=== PATIENT | female | born 1985 | race Caucasian/White ===

== ENCOUNTER 2022-05-16 14:16 | Inpatient (IN) | payer MEDICAID, SELFPAY ==
[2022-05-16 14:32] VITALS: BMI 19.5
[2022-05-16 14:35] VITALS: BP 130/84; PULSE 83; RESP 15; TEMP 36.6; O2SAT 97
[2022-05-16] MEDS: nicotine 2 mg Gum BUCCAL ×2 (15:29→23:55)
[2022-05-16] MEDS: acetaminophen 325 mg Tablet 650 MG PO (15:29)
[2022-05-16 20:52] VITALS: BP 100/65; PULSE 100; RESP 20; TEMP 37.1; O2SAT 98
[2022-05-16 20:58] VITALS: BP 100/65; PULSE 100; RESP 20; TEMP 37.1; O2SAT 98
[2022-05-17 01:41] LABS: Add Urine Culture? No; Bacteria Urine TRACE /hpf; Bilirubin Urine Neg (Negative); Blood Urine Neg (Negative); Glucose Urine UA Norm (Normal); Ketones Urine Negative (Negative); Leukocyte Esterase Urine Negative (Negative); Mucus Urine TRACE /hpf; Nitrate Urine Negative (Negative); Protein Urine Neg (Negative); RBC Urine 0-4 /hpf (0-2); Urine Appearance Clear (CLEAR); Urine Color Straw (Yellow); Urobilinogen Urine Norm (Negative); WBC Urine 0-4 /hpf (0-5); pH Urine 6 (5-7)
[2022-05-17] MEDS: hyDROXYzine 25 mg Capsule 50 MG PO (01:42)
[2022-05-17 06:00] VITALS: BP 124/76; PULSE 70; RESP 20; TEMP 36.7; O2SAT 99
[2022-05-17] MEDS: nicotine 2 mg Gum BUCCAL ×2 (06:12→09:32)
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
--- NOTE | 2022-05-17 07:48 | PC.NURSE ---
NEW ORDERS DR. ACUNA NOTIFIED THIS RN OF NEW ORDERS TO OBTAIN UA&CS, CBC AND BMP. ORDERS PLACED IN [facility]. PT EDUCATED ON NEW ORDERS PT VERBALIZES UNDERSTANDING.
--- NOTE | 2022-05-17 08:44 | PC.NURSE ---
UP IN DAY AREA STATES SHE DID NOT SLEEP WELL LAST NIGHT DUE TO TRAINING HERSELF TO WORK NIGHTS. 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 PT DOES REPORT GENERALIZED PAIN 3/10, MED NURSE TO ADMINISTER TYLENOL ORDERED. PT DENIES SI/HI AND AVH AT THIS TIME. SUPPORT WAS VOICED.
[2022-05-17] MEDS: acetaminophen 325 mg Tablet 650 MG PO ×2 (09:03→22:19)
[2022-05-17 09:20] LABS: Basophils # 0.1 10^3/uL (0.0-0.1); Basophils % 1.2 %; Eosinophils # 0.2 10^3/uL (0.0-0.8); Eosinophils % 2.6 %; Hematocrit 37.9 % (37.0-47.0); Hemoglobin 13.2 g/dL (11.5-15.3); Lymphocytes # 2.9 10^3/uL (0.8-4.8); Lymphocytes % 37.6 %; Mean Corpuscular HGB Conc 34.8 g/dL (30.0-36.0); Mean Platelet Volume 11.2 fL (7.4-10.4); Monocytes # 0.5 10^3/uL (0.2-0.9); Monocytes % 6.7 %; Neutrophils % 51.6 %; Nucleated Red Blood Cells % 0 %; Platelet Count 209 10^3/cmm (130-400); Red Blood Count 4.12 10^6/uL (4.1-5.3); Red Cell Distribution Width 12.4 % (12.1-15.1); White Blood Count 7.7 10^3/uL (4.0-10.0)
[2022-05-17 09:46] LABS: Blood Urea Nitrogen 23 mg/dL (6-20); Calcium 10.3 mg/dL (8.5-10.5); Carbon Dioxide 27 mmol/L (22-29); Chloride 100 mmol/L (98-107); Glomerular Filtration Rate 46.3 mL/min (90-130); Glucose 77 mg/dL (65-115); Osmolality Calculated 286 mOsm/kg (285-295); Sodium 137 mmol/L (136-145)
[2022-05-17] MEDS: nicotine 21 mg Patch 1 PATCH TRANSDERMA (13:09)
[2022-05-17 14:00] VITALS: BP 103/69; PULSE 82; RESP 16; TEMP 37.1; O2SAT 99
[2022-05-17] MEDS: OLANZapine 5 mg ODT PO (15:33)
[2022-05-17 19:48] VITALS: BP 111/60; PULSE 80; RESP 16; TEMP 36.9; O2SAT 98
[2022-05-17] MEDS: benzocaine 20% 7 gm 1 APPLIC MUCOUS MEM (22:19)
[2022-05-18] MEDS: hyDROXYzine 25 mg Capsule 50 MG PO (02:57)
--- NOTE | 2022-05-18 03:02 | PC.NURSE ---
AGITATION SOON AFTER SHIFT CHANGE PT CAME TO NURSES STATION REQUESTING TOWELS AND SHOWER SUPPLIES. PT WAS NOTIFIED THERE WAS NO TOWELS ON THE UNIT LEFT FROM DAY SHIFT AND STAFF WOULD ATTEMPT TO GET TOWELS SOON POSSIBLE, IT WAS JUST AFTER SHIFT CHANGE. PT REPEATEDLY CAME TO NURSES STATION REQUESTING TOWELS AND STAFF CONTINUED TO LET PT KNOW WE HAD NO TOWELS ON THE UNIT AND WOULD GET THEM SOON POSSIBLE. PT STATED SHE WAS GOING TO CALL HER WAREHOUSE PERSON AND SU THIS HOSPITAL BECAUSE STAFF WAS UNABLE TO GET HER TOWELS AT THAT TIME. DUE TO PT ACUITY TOWELS WERE NOT OBTAINED UNTIL 0000 AND TOWELS HAD TO BE BROUGHT TO THE UNIT BY FRUIT CULLER. PT WAS EXTREMELY AGITATED AND STAFF HAD TO EXPLAIN TO HER MULTIPLE TIMES WHY IT TOOK SO LONG TO GET TOWELS. AFTER PT SHOWERED PT TOLD ICE CREAM VENDOR THAT STAFF WAS LAZY AND DID NOT HELP HER. ONCE IT WAS EXPLAINED TO PT AGAIN SHE THEN APOLOGIZED. AT 0250 PT RETURNED TO NURSES STATION REQUESTING MEDICATION FOR ANXIETY AND THAT THE PROVIDER WAS GOING TO ORDER HER A NEW MEDICATION THAT STARTED WITH A P . ONCE THIS NURSE EXPLAINED TO THE PT THAT THE PROVIDER HAD NOT PLACED THAT ORDER AT THIS TIME SO SAID MEDICATION COULD NOT BE ADMINISTERED UNTIL STAFF SPEAKS WITH PROVIDER. PT BEGAN STATING SHE WAS GOING TO CALL HER WAREHOUSE PERSON IN THE MORNING AND SU THE HOSPITAL. ICE CREAM VENDOR GAVE VISTERIL 50MG (25MG CAPSULES) AND PT REFUSED ONE TABLET. PT THEN RETURNED TO HER ROOM.
[2022-05-18 06:00] VITALS: BP 106/70; PULSE 92; RESP 18; TEMP 36.9; O2SAT 97
[2022-05-18] MEDS: nicotine 21 mg Patch 1 PATCH TRANSDERMA (10:07)
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
[2022-05-18] MEDS: ARIPiprazole 10 mg Tablet 5 MG PO (13:58)
[2022-05-18 14:00] VITALS: BP 113/76; PULSE 84; RESP 16; TEMP 36.6; O2SAT 99
[2022-05-18 20:09] VITALS: BP 107/68; PULSE 86; RESP 18; O2SAT 98
[2022-05-18] MEDS: acetaminophen 325 mg Tablet 650 MG PO (20:46)
[2022-05-18] MEDS: mirtazapine 15 mg Tablet PO (21:06)
--- NOTE | 2022-05-18 21:06 | PC.NURSE ---
Pt at first refused her remeron 15mg this evening. Requested RN to call Dr to see if medication could be given in the morning due to her job being at night. Doctor notified and stated while pt is here, the said medication needs to be given at night so she can rest, and when she gets home she can adjust it to morning if she wants, but that she needs to take it at bedtime. pt agreed and voiced understanding and then agreed to take said medication tonight after all.
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
[2022-05-19 05:41] VITALS: BP 108/69; PULSE 89; RESP 17; TEMP 36.6; O2SAT 96
[2022-05-19] MEDS: ARIPiprazole 10 mg Tablet 5 MG PO (08:30)
[2022-05-19] MEDS: nicotine 21 mg Patch 1 PATCH TRANSDERMA (08:30)
[2022-05-19] MEDS: acetaminophen 325 mg Tablet 650 MG PO ×2 (09:04→20:32)
[2022-05-19 13:48] VITALS: BP 108/69; PULSE 89; RESP 17; TEMP 36.6; O2SAT 96
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
[2022-05-19] MEDS: mirtazapine 15 mg Tablet 30 MG PO (19:43)
[2022-05-19 19:50] VITALS: BP 101/67; PULSE 100; RESP 20; TEMP 36.8; O2SAT 97
[2022-05-20 06:00] VITALS: BP 101/67; PULSE 82; RESP 20; TEMP 36.7; O2SAT 97
[2022-05-20] MEDS: nicotine 21 mg Patch 1 PATCH TRANSDERMA (08:24)
[2022-05-20] MEDS: ARIPiprazole 10 mg Tablet 7.5 MG PO (08:24)
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
[2022-05-20 14:00] VITALS: BP 100/61; PULSE 82; RESP 17; TEMP 36.8; O2SAT 100
[2022-05-20] MEDS: acetaminophen 325 mg Tablet 650 MG PO (18:37)
[2022-05-20 19:55] VITALS: BP 111/71; PULSE 89; RESP 16; TEMP 36.6; O2SAT 97
[2022-05-20] MEDS: mirtazapine 15 mg Tablet 30 MG PO (20:35)
[2022-05-21 06:00] VITALS: BP 112/67; PULSE 86; RESP 18; TEMP 36.6; O2SAT 99
[2022-05-21] MEDS: multivitamin therapeutic Tablet 1 TAB PO (09:41)
[2022-05-21] MEDS: ARIPiprazole 10 mg Tablet 7.5 MG PO (09:41)
[2022-05-21] MEDS: nicotine 21 mg Patch 1 PATCH TRANSDERMA (09:41)
--- NOTE | 2022-05-21 10:01 | PC.NURSE ---
PT IN DAY AREA CALM AND COOPERATIVE. DENIES PAIN DENIES SI/HI AND AVH AT THIS TIME. PT CONTINUES TO FOCUS ON RELIGOUS IDEATIONS BELIEVEING SHE IS THE SECOND COMING OF DEV. PT ALSO STATES SHE IS FOCUSING ON BREAKING GENERATIONAL CURSES AND GENERATIONAL TRAUMAS. ALL QUESTIOS ANSWERED AND SUPPORT VOICED.
[2022-05-21 14:00] VITALS: BP 112/77; PULSE 84; RESP 16; TEMP 36.9; O2SAT 99
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
[2022-05-21 15:30] VITALS: BP 112/67; PULSE 86; RESP 18; TEMP 36.6; O2SAT 99
== END 2022-05-21 16:30 | disposition home or self-care (01) | DRG 885 ==
PROVIDERS: Admitting Provider Psychiatry & Neurology Psychiatry; Visit Provider Psychiatry & Neurology Psychiatry
DX: F29 Unspecified psychosis not due to a substance or known physiological condition (principal); F43.10 Post-traumatic stress disorder, unspecified; F41.9 Anxiety disorder, unspecified; F17.210 Nicotine dependence, cigarettes, uncomplicated; Z81.8 Family history of other mental and behavioral disorders; Z62.810 Personal history of physical and sexual abuse in childhood
CPT/HCPCS: 36415; 80048; 81001; 85025; 97150; 97165

== ENCOUNTER 2022-05-22 04:30 | Emergency (ER) | payer MEDICAID, SELFPAY ==
--- NOTE | 2022-05-22 04:37 | W.ED.GENADLT ---
HPI - General Adult General: Chief complaint: General Medical Stated complaint: mouth and eyes dry Time Seen by Provider: 05/22/22 04:36 History of Present Illness: Ms Alegria is a 37 old lady with history psychiatric disorder who presents to the emergency room due to concern for dehydration. She was released from [facility] today but said that he did not have a ride so she decided to try to walk a considerable distance in the heat. Denies lightheadedness or dizziness. Appropriate swetting. Mild muscle aches and pains in her legs from walking. Reports that her mom can now pick her up and she has a safe disposition. No other specific changes in health, exacerbating, or alleviating factors identified. Onset (ago): hour(s) Severity: mild Review of Systems General: Reports: 10 or more systems reviewed and unremarkable except in HPI and below PFSH ED PFSH: Medical History Anxiety PTSD (post-traumatic stress disorder) Surgical History No significant past surgical history Female Reproductive History: Date of last menstrual period: 04/16/22 Physical Exam Const: COMMON NORMALS: alert GENERAL APPEARANCE: cooperative and well developed HENMT: COMMON NORMALS: normocephalic and atraumatic HEAD & SCALP: normocephalic and atraumatic Eye: COMMON NORMALS: conjunctivae normal CONJUNCTIVA: Yes conjunctivae normal SCLERA: sclerae normal Neck/C-Spine: COMMON NORMALS: supple GENERAL: Yes trachea midline Resp: COMMON NORMALS: normal respiratory effort and clear to auscultation bilaterally EFFORT & INSPECTION: Yes able to speak in complete sentences AUSCULTATION: clear to auscultation bilaterally Cardio: COMMON NORMALS: regular rate and regular rhythm RATE: regular rate RHYTHM: regular rhythm GI: COMMON NORMALS: Soft to palpation PALPATION: Yes Soft to palpation and No Tenderness to palpation present (GI) Extremity: GENERAL: Yes normal exam except as noted and No edema Neuro: COMMON NORMALS: moves all extremities SENSORIUM/ORIENTATION: Yes alert and No Orientation impaired Psych: THOUGHT CONTENT: No Suicidality present and No Homicidality present Course Vital Signs: Vital signs: Vital Signs Temperature 98.8 F 05/22/22 04:41 Pulse Rate 95 05/22/22 04:41 Respiratory Rate 16 07/22/22 06:12 Blood Pressure 110/72 05/22/22 04:41 Pulse Oximetry 98 05/22/22 04:41 Oxygen Delivery Me thod 05/22/22 04:41 MDM - General Adult Medical Decision Making 37-year-old lady with heat exposure. Nontoxic in appearance and no evidence of heat exhaustion or heat stroke. Fluids given. Patient has ride and is satisfactory for discharge. Medical Records I reviewed the patient's medical records. Lab Data I reviewed the patient's lab results. Discharge Plan Discharge Patient Disposition: Home Clinical Impression: Dehydration Condition: Stable Prescriptions: New ondansetron 4 mg tablet,disintegrating 4 mg PO Q8H PRN (Reason: nausea and vomiting) Qty: 15 0RF No Action aripiprazole 10 mg Tablet 10 mg PO DAILY Qty: 30 1RF mirtazapine 30 mg tablet 30 mg PO BEDTIME 30 Days Qty: 30 1RF Discharge Orders: Discharge ED (Routine); Ordered 05/22/22 Ordered By: Colton Bliss Discharge Diet: Usual diet Discharge Activity: Increase activity as tolerated Patient Instructions: Dehydration (ED) Activity Restrictions/Additional Instructions: Thank you for visiting the emergency department. You were seen and evaluated for concern over dehydration. Given clinical history you are likely dehydrated however given fluids in the emergency department. Please be cautious regarding physical exertion in the heat. Please ensure that you are staying hydrated with drinking lots of water and/or electrolyte solution. Please return to the emergency department for anything that you are concerned about and feel needs emergency department evaluation. Coding Level of Care Code ED Multimedia Specialist for Cuca Olson
[2022-05-22 04:41] VITALS: BP 110/72; PULSE 95; RESP 17; TEMP 37.1; O2SAT 98; BMI 18.8
[2022-05-22] MEDS: sodium chloride 0.9% 1,000 ML 999 ML IV (05:10)
[2022-05-22 06:12] VITALS: RESP 16
== END 2022-05-22 06:13 | disposition home or self-care (01) ==
PROVIDERS: Emergency Provider Emergency Medicine
DX: E86.0 Dehydration (principal)
CPT/HCPCS: 96360; 99284; J7030